=== PATIENT | female | born 1955 | race Caucasian/White ===

== ENCOUNTER → 2021-02-11 | Outpatient (CLI) | payer OTHER, BC ==
[~2021-02-11] MED LIST: ALEVE220 MG PO; BUDEPRION SR150 MG PO; CLIMARA PRO PA1 EACH TD; COLACE 100 MG100 MG PO; COUMADIN 2 MG TA2 M1; COUMADIN 5 MG TA5 M1; COUMADIN7.5 MG PO; ENOXAPARIN80 MG/0.8 SUBQ; ESTRADIOL1 EAC4 TRANSDERM; HCG SUBQ; HYDROCODON-ACE1 EAC5 PO; HYDROCODON-ACE1 EAC8 PO; MOBIC7.5 M1 PO; NAPROSYN375 MG PO; NORCO 10-325 T1 EACH PO; NORCO 5-325 TA1 EACH PO
== END ==
LOC: ULTRA 14:21
PROVIDERS: ATTEND Family Medicine
DX: R10.13 Epigastric pain (principal)

== ENCOUNTER 2021-02-20 09:49 | Day surgery (SDC) | payer OTHER, BC ==
[~2021-02-20] VITALS: Ht 167.6 cm; Wt 96.2 kg
[~2021-02-20 09:49] MED LIST changes: +BUPROPION HCL150 M1 PO; +FLEXERIL PO; +GYNODIOL0.5 MG PO; +NABUMETONE 500500 M2 PO; +NORCO7.5 PO
[2021-02-20 10:57] VITALS: BP 118/81
[2021-02-20] MEDS ORDERED: HYDROCODON-ACE1 EA12 PO (14:34)
[2021-02-20 14:46] VITALS: BP 118/81
--- NOTE | 2021-02-24 11:37 | O ---
[facility] [place] [address] OPERATIVE REPORT Name: RAFITA GELLER Room #: [facility].#: [id number] Admission: 02/20/21 Attend Phys: Seamus Ibarra MD Discharge: 02/20/21 Date of : 57 Report #: [id number] THIS REPORT FOR: cc: Bryce Osorio MD, Rene P. MD Chu, Peter Y. MD ~ cc: Bryce Osorio MD DATE OF SERVICE: 02/20/2021 PREOPERATIVE DIAGNOSIS: Cholecystitis with cholelithiasis. POSTOPERATIVE DIAGNOSIS: Cholecystitis with cholelithiasis. PROCEDURE PERFORMED: Laparoscopic cholecystectomy with intraoperative cholangiogram. FINDINGS: The gallbladder contained innumerable stones that are cholesterol in nature up to the size of about over a centimeter. There were small stones in the cystic duct that were removed prior to the cholangiogram. Common bile duct is normal on intraoperative cholangiogram. COMPLICATIONS: None. BLOOD LOSS: 10 mL SURGEON: Seamus Ibarra MD. ANESTHESIA: General anesthesia. DESCRIPTION OF PROCEDURE: With the patient under general anesthesia, abdomen was prepped and draped in sterile fashion. IV antibiotic was administered, 0.25% Marcaine was used to anesthetize the skin. Curvilinear incision that was slightly over 2 cm was made infraumbilically. Fascia was then identified, grasped with hemostat. Fascia was then opened under visualization, 0 Vicryl suture placed on the fascial edges for retraction. Veress needle was then placed through the peritoneum. Abdominal cavity was insufflated with CO2 without difficulty. After creating pneumoperitoneum, 11 mm trocar was placed into the pneumoperitoneum. No harm to underlying tissue. The patient did have omentum and bowel adhesion. The bowel particularly in the right lower quadrant from her prior [employer] surgery. There was also filmy adhesion over the liver. These two 5 mm trocars placed in right upper quadrant and a 5 mm trocar placed in right epigastrium. The adhesions attached to the liver were easily freed with cautery. Fundus of the gallbladder was then lifted up cephalad with the liver being mobile. There was adhesion on the gallbladder consistent with chronic inflammation. The peritoneum over the cystic duct was dissected free. [address] [address] OPERATIVE REPORT Name: RAFITA GELLER Room #: [facility].#: [id number] Admission: 02/20/21 Attend Phys: Seamus Ibarra MD Discharge: 02/20/21 Date of : 57 Report #: [id number] The cystic duct was isolated. There is tortuosity of the cystic duct. The cystic duct-gallbladder junction was identified. The cystic artery overlapped the cystic duct pretty closely, isolated the cystic artery and then divided the artery to get better access to the cystic duct. The artery was clipped x2 proximally, one distally and then divided. Clip was placed in the junction of cystic duct to the gallbladder. The cystic duct is moderately enlarged. The cystic duct was opened. At the opening site, there are small yellow stones present. The cystic duct was then milked of multiple small stones. Bile started then coming out. Cholangiogram catheter was then placed. Fluoroscopic cholangiogram was obtained. Cholangiogram catheter was identified in the tortuous cystic duct and then the common duct was filled out. Common duct was moderately dilated. The hepatic branches were well seen. Finally, the dye flowed through the distal common duct into the duodenum. There was no stone in the bile duct. The cholangiogram catheter was then removed. The proximal part of the cystic duct was then clipped and divided. During this procedure, the critical view was obtained. There was no harm to the common duct. There was a posterior artery branch, this was clipped x2 and then divided. The gallbladder was free from the liver bed without difficulty. Gallbladder was placed in a specimen bag and then the gallbladder was retrieved through the infraumbilical port. Gallbladder was opened and contained innumerable yellowish stones. They vary in size. The stones were sticky together through sludgy material. Liver bed was checked, hemostasis obtained. When the camera was placed pointing inferiorly, there were the adhesions that were identified mentioned above. There was a scar in the right lower quadrant, likely from that surgery and then a hysterectomy she had later on after that too. These were left alone. Trocars removed. CO2 was evacuated. The infraumbilical fascia defect was closed with [id number] 0 Vicryl x2. Skin was irrigated, closed with 5-0 PDS. Steri-Strip, Band-Aids applied. <ELECTRONICALLY SIGNED> By: Seamus Ibarra MD 02/24/21 1137 14 33 Seamus Ibarra MD /nt
--- NOTE | 2021-02-24 13:08 | PATH ---
[facility] [address] [place] [address] PATHOLOGY RPT PROCEDURE Name: RAFITA GELLER Room #: [facility].#: [id number] Admission: 02/20/21 Date of : 57 Discharge: 02/20/21 Report #: [id number] Path Case #: [id number] [facility] Accession Number: [id number] . 01 Material submitted: . gallbladder - GALLBLADDER . 01 Clinical history: . LAPAROSCOPIC CHOLECYSTECTOMY WITH G LAPAROSCOPY WITH LYSIS OF ADHESIONS GALLBLADDER DISEASE WITH STONES CHOLELITHIASIS . 02 Diagnosis: Gallbladder, cholecystectomy: - Chronic cholecystitis with cholesterolosis and cholelithiasis. . (ANK:mml; 02/24/2021) QLM 02/24/2021 1100 Local . 02 Electronically signed: . Cori Grove MD, Pathologist NPI- [id number] . 01 Gross description: . Fixative: Formalin Labeled: Gallbladder Specimen received: Previously disrupted gallbladder Dimensions: 8.0 x 4.0 x 0.3 cm Serosa: Light cárdenas-alvarenga and bile-stained Lymph node: None identified Mucosa: Velvety and bile-stained with yellow stippling Average wall thickness: 0.2 cm Calculi: Present, light green-yellow and multifaceted and friable Abnormalities: None identified . A1- Exchange Trouble Shooter body, fundus, and the cystic duct margin. ([facility]; 02/23/2021) [facility] 02/23/2021 1227 Local . 02 Pathologist provided ICD-10: K80.10 . 02 CPT . 611403 Specimen Comment: A courtesy copy of this report has been sent to [phone], [phone] [address] PATHOLOGY RPT PROCEDURE Name: RAFITA GELLER [id number] Admission: 02/20/21 Date of : 57 Discharge: 02/20/21 Report #: [id number] Path Case #: [id number] Specimen Comment: [id number] Specimen Comment: Report sent to / DR GARCIA Performed at: 01 [facility] [address] [id number] MD Brooks Pressley MD Phone: [phone] Performed at: [address] [id number] MD Christina Boland MD Phone: [phone]
== END 2021-02-20 15:55 | disposition home or self-care (01) ==
LOC: OR 09:49 → TBA 09:52 → OR 14:02
PROVIDERS: ATTEND Surgery
DX: K80.10 Calculus of gallbladder with chronic cholecystitis without obstruction (principal); Z98.890 Other specified postprocedural states; Z79.899 Other long term (current) drug therapy; Z20.822 Contact with and (suspected) exposure to COVID-19; Z96.643 Presence of artificial hip joint, bilateral; Z90.710 Acquired absence of both cervix and uterus; Z87.891 Personal history of nicotine dependence; Z88.6 Allergy status to analgesic agent
CPT/HCPCS: 50010; 50101; 50411; 50555; 51489; 52265; 53307; 53310; 53312; 55245; 55317; 56462; 56525; 56526; 58574; 58910; 62110; 62900; 70005